=== PATIENT | female | born 1975 | race Caucasian/White ===

== ENCOUNTER 2024-07-15 08:11 | Emergency (ER) | payer BC, SELFPAY ==
[2024-07-15 08:26] VITALS: BP 121/72; PULSE 87; RESP 16; TEMP 36.8; O2SAT 100
--- NOTE | 2024-07-15 08:35 | ED.FEMALEGU ---
HPI - Female Genitourinary General Chief complaint: Urogenital-Female Stated complaint: uti Time Seen by Provider: 07/15/24 08:35 Source: patient and RN notes reviewed Mode of arrival: ambulatory Limitations: no limitations History of Present Illness HPI Narrative: 49-year-old female presented for complaint of vaginal 'irritation' for about 1 week. Symptoms started after using a new scented soap from a hotel. Yesterday she started with mid lower back pain which she has attributed to UTI. Denies significant burning with urination. She has increased her water intake. She took an at-home UTI test that was positive today. Denies hematuria, nausea, vomiting, abdominal pain, flank pain, constipation, diarrhea, fevers or chills. Denies concern for std. Related Data Allergies Allergy/AdvReac Type Severity Reaction Status Date / Time Sulfa (Sulfonamide Allergy Mild RASH Verified 11/21/14 17:40 Antibiotics) Review of Systems Review of Systems: CONSTITUTIONAL: Denies body aches, fever, chills, or sweats. CARDIOVASCULAR: Denies chest pain, palpitations, or edema. RESPIRATORY: Denies cough or dyspnea. GASTROINTESTINAL: Denies abdominal pain, nausea, vomiting, or diarrhea. GENITOURINARY: Reports dysuria, denies frequency, urgency, hematuria, flank pain SKIN: Denies rash, itching, or wounds. MUSCULOSKELETAL: reports low back pain PMFSH Comments At time of signature, I have reviewed and agree with nursing past medical, surgical, social and family history unless otherwise noted. Please see nursing chart for further information. There is no relevant family history pertinent to the presenting complaint Exam Narrative: GENERAL: Well-appearing and in no acute distress. ENT: Mucous membranes pink and moist. CHEST: No respiratory distress. Clear to auscultation. HEART: Regular rate and rhythm. ABDOMEN: Soft, nontender, nondistended, normal active bowel sounds. No CVA tenderness SKIN: Warm, dry, no rash. NEURO: No focal deficits. Alert and oriented x3. Gait steady. PSYCH: Normal affect. Course Course Emergency Course: Patient is aware of diagnosis, understands and agrees to treatment plan. Anticipatory guidance given. Patient agrees to follow-up as directed and is aware of reasons to seek care at the emergency department. Portions of this record may have been created with voice recognition software Level of Care: Express Care Visit Vital Signs Vital signs: Vital Signs Temperature 98.3 F 07/15/24 08:26 Pulse Rate 87 07/15/24 08:26 Respiratory Rate 16 07/15/24 08:26 Blood Pressure 121/72 07/15/24 08:26 Pulse Oximetry 100 07/15/24 08:26 Temperature 98.3 F 07/15/24 08:26 Pulse Rate 87 07/15/24 08:26 Respiratory Rate 16 07/15/24 08:26 Blood Pressure 121/72 07/15/24 08:26 Pulse Oximetry 100 07/15/24 08:26 Reviewed MDM - Female Genitourinary MDM Narrative Medical decision making narrative: Discussed physical exam findings consistent with UTI. Declines testing for yeast or BV. Advised supportive measures and signs/symptoms to go to the ER. Pt is appropriate for outpt treatment and f/u. Differential Diagnosis Differential diagnosis: Likely urinary tract infection, bacterial vaginosis, vaginitis, cystitis and other Discharge Plan Discharge Clinical Impression: Urinary tract infection Patient Disposition: Home, Self-Care Condition: Stable Instructions: Antibiotic Form, Urinary Tract Infection in Women (ED) Additional Instructions: Take the antibiotic as prescribed The urine will be sent of for a culture to identify what type of bacteria is causing your infection. If the culture shows that the antibiotic will not get rid of your infection, you will be notified and a new antibiotic will be called in for you. Increase water intake you will need to follow up with your PCP, call to schedule an appointment. Go to the ER for any worsening symptoms or concerns
[2024-07-15 08:36] LABS: EDUAAPPEAR Cloudy; EDUABILI Negative (Negative); EDUABLOOD 2+ (Negative); EDUACOLOR1 Yellow; EDUAGLUCOSE Negative (Negative); EDUAKETONE Negative (Negative); EDUALEUKO 2+ (Negative); EDUANITRATE Positive (Negative); EDUAPH 5.5; EDUAPROTEIN Negative (Negative); EDUAUROBILI 0.2
== END 2024-07-15 08:49 | disposition home or self-care (01) ==
PROVIDERS: Emergency Provider Nurse Practitioner Family
DX: N39.0 Urinary tract infection, site not specified (principal); B96.20 Unspecified Escherichia coli [E. coli] as the cause of diseases classified elsewhere
CPT/HCPCS: 81003; 87077; 87086; 87186; 99203; G0463

== ENCOUNTER 2025-02-24 11:34 | Emergency (ER) | payer OTHER, SELFPAY ==
[2025-02-24 11:45] VITALS: BP 139/81; PULSE 77; RESP 16; TEMP 37.4; O2SAT 100
--- NOTE | 2025-02-24 11:51 | ED_ITS ---
HPI - Skin/Abscess/Foreign Bdy General Chief complaint: Skin/Abscess/Foreign Body Stated complaint: TICK BITE Time Seen by Provider: 02/24/25 11:50 Source: patient, RN notes reviewed and old records reviewed Mode of arrival: ambulatory Limitations: no limitations History of Present Illness HPI narrative: 49 year old female presents to express care stating that she noted tick this morning in shower with small red raised bump noted to upper abdomen. Patient reports that she was outside on Thursday and thinks that is when she would of been exposed to tick. Patient reports no bulls eye rash noted, denies any mu scle or joint pain, does state some increased fatigue but has been busy with her family MD complaint: other (tick bite upper abdomen) Onset (ago): day(s) (noted tick fell off of her in shower this morning) Location: chest (upper abdomen area) Severity: mild Related Data Allergies Allergy/AdvReac Type Severity Reaction Status Date / Time Sulfa (Sulfonamide Allergy Mild RASH Verified 02/24/25 11:43 Antibiotics) doxycycline AdvReac Mild Nausea Verified 02/24/25 11:43 Review of Systems Review of Systems: CONSTITUTIONAL: Denies fever, chills, or sweats. CARDIOVASCULAR: Denies chest pain, palpitations, or edema. RESPIRATORY: Denies cough or dyspnea. SKIN: Reports noted tick bite to upper abdomen below left breast with tick falling off in shower this morning, had been outside on Thursday. MUSCULOSKELETAL: Denies joint pain or myalgia. NEUROLOGIC: Denies headache, numbness, or weakness. All systems reviewed & are unremarkable except as noted in HPI and below PMFSH Past Medical History Medical History (Updated 02/24/25 @ 12:33 by Pam Luna NP) Pneumonia Bronchitis Surgical History Surgical History Previous section x2 Social History Social History Smoking status: Never smoker Alcohol intake: current Alcohol use details: social Substance use type: does not use Living arrangements: with family Gender identity (if verbalized by the patient): Female Comments At time of signature, agree with nursing past medical, surgical, social and family history. There is no relevant family history pertinent to the presenting complaint Exam Narrative: GENERAL: Well-appearing, well-nourished, and in no acute distress. HEAD: Normocephalic, atraumatic. EYES: PERRLA, conjunctivae clear, and EOMI. ENT: Mucous membranes moist. Oropharynx without edema, erythema or lesions. NECK: Supple. No lymphadenopathy CHEST: Clear to auscultation. No respiratory distress.SAO2 100% on room air HEART: Regular rate and rhythm. SKIN: Warm, dry.?small red pin point lesion under left breast on upper abdomen from where tick had been. no bulls eye rash or any muscle pain or joint pain, does report fatigue. NEURO:? Alert and oriented x3. PSYCH: Normal mood and affect Course Course Emergency Course: Patient is aware of diagnosis, understands and agrees to treatment plan.? Anticipatory guidance given.? Patient agrees to follow-up as directed and is aware of reasons to seek care at the emergency department. Portions of this record may have been created with voice recognition software Level of Care: Express Care Visit Vital Signs Vital signs: Vital Signs Temperature 37.4 C 02/24/25 11:45 Pulse Rate 77 02/24/25 11:45 Respiratory Rate 16 02/24/25 11:45 Blood Pressure 139/81 02/24/25 11:45 Pulse Oximetry 100 02/24/25 11:45 Temperature 37.4 C 02/24/25 11:45 Pulse Rate 77 02/24/25 11:45 Respiratory Rate 16 02/24/25 11:45 Blood Pressure 139/81 02/24/25 11:45 Pulse Oximetry 100 02/24/25 11:45 Reviewed MDM - Skin/Abscess/Foreign Bdy MDM Narrative Medical decision making narrative: Does not appear at this time to be erythema multiforme, bullous, SJS, TEN; no evidence at this time to suggest RMSF, endocarditis or Lyme disease; patient looks well, nontoxic and is tolerating oral intake; no neurologic signs or s ymptoms; no headache, photophobia or neck pain; afebrile; appropriate for initial outpatient treatment; discussed the importance of follow-up, patient agrees; question, viral exanthema, contact dermatitis, allergic dermatitis, eczema, urticaria, [ xx ]. No soft palate or uvula edema, no tongue, lip edema or other mucosal involvement, no respiratory compromise, no stridor, no wheezing, no wheezing, no history of syncope, no hypotension, no nausea, vomiting, or diarrhea.? Instructed patient to go to nearest ER immediately for any worsening symptoms including but not limited to: fever, spreading rash, pain, sore throat, headache, dizziness, chest pain, trouble breathing, or any symptoms concerning to the patient. Differential Diagnosis Differential diagnosis: Likely insect bites and other (tick bite left upper abdomen, prophylactic exposure medication given,) Medical Records Attestation: I reviewed the patient's medical records. Critical Care Time Critical Care Time Critical Care Time: No Discharge Plan Discharge Clinical Impression: Tick bite of abdominal wall Patient Disposition: Home Condition: Stable Instructions: Antibiotic Form, Tick Bite (ED) Additional Instructions: Prophylactic treatment doxycycline 200 mg 1 time dose Take Zofran with doxycycline watch for any changes to tick bite watch for rashes monitor for any fevers note for any changes in muscle pain or acute fatigue If your symptoms persist, change or worsen significantly before you can contact your personal physician then please, without delay, go to the emergency department for further evaluation. Follow-up with PCP in 7-10 days or sooner if needed Follow up with PCP soon in regards to your blood pressure which is elevated above threshold for referral. Blood pressure above 120/80 may indicate pre- hypertension. 139/81 Patient Language: Yoruba Prescriptions: New doxycycline hyclate 100 mg capsule 100 mg PO DAILY Qty: 2 0RF Rx Instructions: 1 time use ondansetron 4 mg tablet,disintegrating 4 mg PO Q6H PRN (Reason: nausea and vomiting) Qty: 10 0RF Follow-up/Referrals: PHYSICIAN,DIRECTOR VISUAL [Primary Care Provider] - Time of Disposition: 12:11 Quality [place] Coma Scale Eyes: Open Verbal: Oriented and Alert Motor: Follows Commands Yann Coma Total Score: 15
== END 2025-02-24 12:15 | disposition home or self-care (01) ==
PROVIDERS: Emergency Provider Registered Nurse
DX: S30.861A Insect bite (nonvenomous) of abdominal wall, initial encounter (principal); W57.XXXA Bitten or stung by nonvenomous insect and other nonvenomous arthropods, initial encounter
CPT/HCPCS: 99213; G0463